=== PATIENT | female | born 1960 | race American Indian/Alaskan Native ===

== ENCOUNTER 2016-07-26 00:30 | Emergency (ER) | payer SELFPAY ==
[2016-07-26] MEDS ORDERED: TYLENOL ONE (02:19)
[2016-07-26] MEDS ORDERED: TYLENOL PO ONE (02:20)
[2016-07-26] MEDS ORDERED: NORCO 5/325 PO ONE (04:34)
--- NOTE | 2016-07-26 04:34 | Emergency Department Report ---
ED Lower Extremity HPI - General Chief Complaint: Extremity Injury, Lower Stated Complaint: RT FOOT PAIN Time Seen by Provider: 07/26/16 04:25 Source: patient Mode of arrival: Wheelchair Limitations: No Limitations - History of Present Illness Initial Comments: 56-year-old female presents to the emergency room with complaints of right foot injury. Patient states the object from right foot since then since complaining of right first and second toe. Denies any ankle pain. MD Complaint: foot injury (right) -: Gradual, hour(s) (several) Injury: Foot: Right, Toes: Right (1st, 2nd) Type of Injury: blunt Place: home Severity: moderate Severity scale (0 -10): 2 Improves With: nothing Worsens With: weight bearing, movement Context: direct blow Associated Symptoms: swelling Treatments Prior to Arrival: cold therapy - Related Data Previous Rx's Medication Instructions Recorded Last Taken Type Aspirin [Aspirin BABY CHEW TAB] 81 mg PO QDAY #30 tab.chew 06/17/14 Unknown Rx Hydrochlorothiazide 12.5 mg PO DAILY #30 capsule 06/17/14 Unknown Rx Lisinopril [Zestril TAB] 5 mg PO QDAY #30 tablet 06/17/14 Unknown Rx Potassium Chloride 20 meq PO DAILY #30 tablet.er 06/17/14 Unknown Rx metFORMIN [Glucophage] 500 mg PO BID #60 tablet 06/17/14 Unknown Rx Diclofenac Sodium 75 mg PO BID #20 tablet.dr 07/26/16 Unknown Rx traMADol [Ultram] 50 mg PO Q6HR PRN #14 tablet 07/26/16 Unknown Rx Allergies Allergy/AdvReac Type Severity Reaction Status Date / Time Penicillins AdvReac Unknown Verified 06/16/14 17:33 shellfish derived AdvReac Unknown Verified 06/16/14 17:33 ED Review of Systems ROS: Stated complaint: RT FOOT PAIN Other details as noted in HPI Comment: All other systems reviewed and negative Constitutional: denies: chills, fever Eyes: denies: eye pain, eye discharge, vision change ENT: denies: ear pain, throat pain Respiratory: denies: cough, shortness of breath, wheezing Cardiovascular: denies: chest pain, palpitations Endocrine: no symptoms reported Gastrointestinal: denies: abdominal pain, nausea, diarrhea Genitourinary: denies: urgency, dysuria, discharge Musculoskeletal: other (right foot/toes pain). denies: back pain, joint swelling, arthralgia Skin: denies: rash, lesions Neurological: denies: headache, weakness, paresthesias Psychiatric: denies: anxiety, depression Hematological/Lymphatic: denies: easy bleeding, easy bruising ED Past Medical Hx - Past Medical History Previous Medical History?: Yes Hx Hypertension: Yes Hx Heart Attack/AMI: No Hx Congestive Heart Failure: No Hx Diabetes: Yes Hx Deep Vein Thrombosis: No Hx Pulmonary Embolism: No Hx Renal Disease: No Hx Sickle Cell Disease: No Hx Arthritis: Yes Hx Seizures: No Hx Kidney Stones: No Hx Asthma: Yes Hx COPD: No Hx Tuberculosis: No Hx Dementia: No Hx HIV: No Additional medical history: High Cholesterol - Surgical History Past Surgical History?: No Hx Coronary Stent: No Hx Open Heart Surgery: No Hx Pacemaker: No Hx Internal Defibrillator: No Hx Cholecystectomy: Yes Hx Appendectomy: No Hx Breast Surgery: No Additional Surgical History: . Myomectomy. EGD - Social History Smoking Status: Never Smoker Substance Use Type: Alcohol, Prescribed - Medications Home Medications: Home Medications Medication Instructions Recorded Confirmed Last Taken Type Aspirin [Aspirin BABY CHEW TAB] 81 mg PO QDAY #30 tab.chew 06/17/14 Unknown Rx Hydrochlorothiazide 12.5 mg PO DAILY #30 capsule 06/17/14 Unknown Rx Lisinopril [Zestril TAB] 5 mg PO QDAY #30 tablet 06/17/14 Unknown Rx Potassium Chloride 20 meq PO DAILY #30 tablet.er 06/17/14 Unknown Rx metFORMIN [Glucophage] 500 mg PO BID #60 tablet 06/17/14 Unknown Rx Diclofenac Sodium 75 mg PO BID #20 tablet.dr 07/26/16 Unknown Rx traMADol [Ultram] 50 mg PO Q6HR PRN #14 tablet 07/26/16 Unknown Rx ED Physical Exam - General Limitations: No Limitations General appearance: alert, in no apparent distress - Head Head exam: Present: atraumatic, normocephalic - Eye Eye exam: Present: normal appearance - ENT ENT exam: Present: mucous membranes moist - Neck Neck exam: Present: normal inspection - Respiratory Respiratory exam: Present: normal lung sounds bilaterally. Absent: respiratory distress - Cardiovascular Cardiovascular Exam: Present: regular rate, normal rhythm. Absent: systolic murmur, diastolic murmur, rubs, gallop - GI/Abdominal GI/Abdominal exam: Present: soft, normal bowel sounds - Extremities Exam Extremities exam: Present: normal inspection - Expanded Lower Extremity Exam Right Hip exam: Present: normal inspection, full ROM Upper Leg exam: Present: normal inspection, full ROM Knee exam: Present: normal inspection, full ROM Lower Leg exam: Present: normal inspection, full ROM Ankle exam: Present: normal inspection, full ROM Foot/Toe exam: Present: tenderness (right 1st and 2nd toes) Neuro vascular tendon exam: Present: no vascular compromise - Back Exam Back exam: Present: normal inspection - Neurological Exam Neurological exam: Present: alert, oriented X3 - Psychiatric Psychiatric exam: Present: normal affect, normal mood - Skin Skin exam: Present: warm, dry, intact, normal color. Absent: rash ED Course Vital Signs 07/26/16 00:42 Temperature 98.1 F Pulse Rate 75 Respiratory 18 Rate Blood Pressure 192/116 Blood Pressure 192/116 [Right] O2 Sat by Pulse 98 Oximetry - Reevaluation(s) Reevaluation #1: Patient complains of decreased pain in the right toes after giving pain medicine in the ER. vitals signs stable 07/26/16 05:27 - Orthopedic Splinting/Casting Injury #1 Side: right Lower Extremity Injury Location: toe Lower Extremity Immobilizer: post-op shoe, bradley tape Critical care attestation.: If time is entered above; I have spent that time in minutes in the direct care of this critically ill patient, excluding procedure time. ED Disposition Clinical Impression: Contusion of toe of right foot Qualifiers: Encounter type: initial encounter Toe: great toe Damage to nail status: without damage Qualified Code(s): S90.111A - Contusion of right great toe without damage to nail, initial encounter Disposition: DISCHARGED TO HOME OR SELFCARE Is pt being admited?: No Does the pt Need Aspirin: No Condition: Good Instructions: Foot Contusion (ED) Prescriptions: Diclofenac Sodium 75 mg PO BID #20 tablet. traMADol [Ultram] 50 mg PO Q6HR PRN #14 tablet PRN Reason: Pain Referrals: SHONDA DRAKE MD [Staff Physician] - 3-5 Days Forms: Work/School Release Form
[2016-07-26 06:21] VITALS: BP 150/67
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
== END 2016-07-26 06:20 | disposition home or self-care (01) ==
LOC: ED 00:30
DX: S90.111A Contusion of right great toe without damage to nail, initial encounter (principal); I10 Essential (primary) hypertension; E11.9 Type 2 diabetes mellitus without complications; J45.909 Unspecified asthma, uncomplicated; E78.00 Pure hypercholesterolemia, unspecified; W20.8XXA Other cause of strike by thrown, projected or falling object, initial encounter; Y93.9 Activity, unspecified; Y92.9 Unspecified place or not applicable; Y99.9 Unspecified external cause status
CPT/HCPCS: 99283

== ENCOUNTER 2017-12-05 15:25 | Emergency (ER) | payer OTHER ==
[2017-12-05] MEDS ORDERED: TORADOL IM ONE (22:07)
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
[2017-12-05] MEDS ORDERED: MOTRIN PO ONE (22:15)
[2017-12-05 22:28] VITALS: BP 214/95
== END 2017-12-05 22:28 | disposition home or self-care (01) ==
LOC: ED 15:25
DX: M54.5 Low back pain (principal); M54.2 Cervicalgia; R42 Dizziness and giddiness; I10 Essential (primary) hypertension; E11.9 Type 2 diabetes mellitus without complications; M19.90 Unspecified osteoarthritis, unspecified site; J45.909 Unspecified asthma, uncomplicated; E78.00 Pure hypercholesterolemia, unspecified; Z90.49 Acquired absence of other specified parts of digestive tract; Z79.82 Long term (current) use of aspirin; V89.2XXA Person injured in unspecified motor-vehicle accident, traffic, initial encounter; Y93.89 Activity, other specified; Y92.488 Other paved roadways as the place of occurrence of the external cause; Y99.8 Other external cause status
CPT/HCPCS: 99282